=== PATIENT | female | born 1990 | race Hispanic/Latino ===

== ENCOUNTER 2021-09-22 01:45 | Emergency (ER) | payer SELFPAY ==
[2021-09-22 02:38] LABS: Absolute Lymphocytes (CBC) 1.6 K/uL (0.7-4.9); Basophils % 0.3 % (0-1.3); Hematocrit 38.4 % (36.0-45.0); Lymphocytes % 17.3 % (15.3-44.8); MPV 9.3 fL (7.6-11.3); RBC Red Blood Cell Count 4.42 M/uL (3.86-4.86)
[2021-09-22 02:57] LABS: Urine Blood Trace-intact (Negative); Urine Glucose Negative (Negative); Urine Protein Negative (Negative); Urine Specific Gravity 1.025 (1.005-1.030)
[2021-09-22 03:38] LABS: BUN Blood Urea Nitrogen 8 mg/dL (7-18); Bicarbonate 24 mmol/L (21-32); Glucose Level 91 mg/dL (74-106); HCG, Quantitative 20364 mIU/mL (1-3); Potassium 3.8 mmol/L (3.5-5.1); Sodium Level 139 mmol/L (136-145)
--- NOTE | 2021-09-22 04:47 | ER ---
Nurse's Notes [facility] Name: Jennifer Contreras Age: 31 yrs Sex: Female : 1990 Arrival Date: 09/22/2021 Time: 01:50 Bed 13 Private MD: Diagnosis: Threatened Presentation: 09/22 02:08 Chief complaint: Patient states: Woken from sleep feeling wet at 0045, reports vaginal lp1 bleeding; patient is about 12 weeks , reports some abdominal cramping. Coronavirus screen: At this time, the client does not indicate any symptoms associated with coronavirus-19. Ebola Screen: No symptoms or risks identified at this time. Initial Sepsis Screen: Does the patient meet any 2 criteria? No. Patient's initial sepsis screen is negative. Does the patient have a suspected source of infection? No. Patient's initial sepsis screen is negative. Risk Assessment: Do you want to hurt yourself or someone else? Patient reports no desire to harm self or others. Onset of symptoms was September 22, 2021 at 00:45. 02:08 Method Of Arrival: Ambulatory lp1 02:08 Acuity: ARNIE 3 lp1 Triage Assessment: 02:10 : Reports vaginal bleeding that is bright red, with clots, Patient brought specimen lp1 in bag. 02:15 General: Behavior is calm, cooperative. Pain: Denies pain. mr2 06:45 General: Appears. mr2 HISTORICAL GUIDE: 02:09 LMP 06/27/2021, Verified, EDC 04/03/2022, Gestational age from LMP: 12 weeks 3 lp1 days Historical: - Allergies: 02:09 No Known Allergies; lp1 - Home Meds: 02:09 None [Active]; lp1 - PMHx: 02:09 None; lp1 - PSHx: 02:09 None; lp1 - Immunization history:: Adult Immunizations up to date. - Social history:: Smoking status: Patient denies any tobacco usage or history of. Screenin:09 Abuse screen: Denies threats or abuse. Denies injuries from another. Nutritional lp1 screening: No deficits noted. Tuberculosis screening: No symptoms or risk factors identified. Fall Risk None identified. Assessment: 02:30 : No deficits noted. mr2 Vital Signs: 02:08 BP 149 / 89; Pulse 80; Resp 18; Pulse Ox 99% on R/A; Weight 78.02 kg (R); lp1 ED Course: 01:50 Patient arrived in ED. 01:56 Nelson Magdaleno, DEANGELO is Primary Nurse. mr2 02:00 Miguel Mittal NP is PHCP. pm1 02:00 Juan Dean MD is Attending Physician. pm1 02:09 Triage completed. lp1 02:09 Arm band placed on. lp1 02:10 Patient has correct armband on for positive identification. lp1 02:30 No provider procedures requiring assistance completed. Inserted saline lock: 20 gauge mr2 in right antecubital area, using aseptic technique. 02:51 Abo/rh Typing Sent. mr2 02:51 Basic Metabolic Panel Sent. mr2 02:51 Quantitative Hcg Sent. mr2 04:27 OB Limited In Process Unspecified. EDMS 04:46 Foster Woods MD is Referral Physician. 7 05:15 IV discontinued. mr2 Administered Medications: No medications were administered Outcome: 04:46 Discharge ordered by . 7 05:20 Discharged to home ambulatory. mr2 05:20 Condition: stable 05:20 Discharge instructions given to patient, Instructed on follow up and referral plans. 05:27 Patient left the ED. lp1 Signatures: Dispatcher [employer] EDNH Yeny Brand, RN RN lp1 Miguel Mittal, MICHAELLE OLIVE PACKER pm1 Juan Dean MD MD [facility] Tracie Wheatley Nelson Magdaleno RN RN mr2
--- NOTE | 2021-09-22 04:47 | EDPHYS ---
Physician Documentation [facility] Name: Jennifer Contreras Age: 31 yrs Sex: Female : 1990 Arrival Date: 09/22/2021 Time: 01:50 Bed 13 Private MD: ED Physician Juan Dean HPI: 09/22 02:40 This 31 yrs old Female presents to ER via Ambulatory with complaints of pm1 Vaginal Bleeding - 12 WKS PREG. 02:40 The patient presents with vaginal bleeding that is with clots. Onset: The pm1 symptoms/episode began/occurred today, at 00:45. Modifying factors: The symptoms are alleviated by nothing, the symptoms are aggravated by nothing. Associated signs and symptoms: Pertinent positives: cramping, Pertinent negatives: dysuria, fever. Severity of symptoms: in the emergency department the symptoms are unchanged. The patient is sexually active. The patient has not experienced similar symptoms in the past. 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 - Social history:: Smoking status: Patient denies any tobacco usage or history of. ROS: 02:40 Positive for vaginal bleeding, Negative for urinary symptoms. pm1 02:40 Constitutional: Negative for fever, chills, and weight loss, Cardiovascular: Negative for chest pain, palpitations, and edema, Respiratory: Negative for shortness of breath, cough, wheezing, and pleuritic chest pain, Abdomen/GI: Negative for abdominal pain, nausea, vomiting, diarrhea, and constipation, Back: Negative for injury and pain, MS/Extremity: Negative for injury and deformity, Skin: Negative for injury, rash, and discoloration. 02:40 All other systems are negative. Exam: 02:40 Constitutional: This is a well developed, well nourished patient who is awake, alert, pm1 and in no acute distress. Head/Face: Normocephalic, atraumatic. 02:40 Back: No spinal tenderness. No costovertebral tenderness. Full range of motion. Skin: Warm, dry with normal turgor. Normal color with no rashes, no lesions, and no evidence of cellulitis. MS/ Extremity: Pulses equal, no cyanosis. Neurovascular intact. Full, normal range of motion. 02:40 Eyes: Exam is negative for acute changes, Extraocular movements: no acute changes, Conjunctiva: no acute changes, no injection. 02:40 ENT: Exam is negative for acute changes, Mouth: no acute changes, Lips: normal, moist, Oral mucosa: normal, pink and intact, moist. 02:40 Cardiovascular: Exam negative for acute changes, Rate: normal, Rhythm: regular, Pulses: no pulse deficits are appreciated. 02:40 Respiratory: Exam negative for acute changes, respiratory distress, shortness of breath, Breath sounds: are clear throughout. 02:40 Abdomen/GI: Inspection: obese Palpation: abdomen is soft and non-tender, in all quadrants. 02:40 Neuro: Exam negative for acute changes, Orientation: is normal, Mentation: is normal, Motor: is normal, moves all fours. Vital Signs: 02:08 BP 149 / 89; Pulse 80; Resp 18; Pulse Ox 99% on R/A; Weight 78.02 kg (R); lp1 MDM: 02:00 Patient medically screened. pm1 02:43 Data reviewed: vital signs. Data interpreted: Pulse oximetry: on room air is 99 %. pm1 Interpretation: normal. 04:45 Counseling: I had a detailed discussion with the patient and/or guardian regarding: the [facility] historical points, exam findings, and any diagnostic results supporting the discharge/admit diagnosis, the presence of at least one elevated blood pressure reading (>120/80) during this emergency department visit, lab results, radiology results, the need for outpatient follow up, an OB/Gyne specialist, to return to the emergency department if symptoms worsen or persist or if there are any questions or concerns that arise at home. Response to treatment: the patient's symptoms have markedly improved after treatment. 09/22 02:02 Order name: Abo/rh Typing pm1 09/22 02:02 Order name: Basic Metabolic Panel pm1 09/22 02:02 Order name: CBC with Diff; Complete Time: 02:43 pm1 09/22 02:02 Order name: Quantitative Hcg pm1 09/22 02:03 Order name: ABO/RH typing; Complete Time: 03:04 EDMS 09/22 02:03 Order name: Basic Metabolic Panel; Complete Time: 03:39 EDMS 09/22 02:02 Order name: IV Saline Lock; Complete Time: 02:51 pm1 09/22 02:02 Order name: Labs collected and sent; Complete Time: 02:51 pm1 09/22 02:02 Order name: NPO; Complete Time: 02:52 pm1 09/22 02:02 Order name: Urine Dipstick-Ancillary (obtain specimen); Complete Time: 02:52 pm1 09/22 02:03 Order name: HCG, Quantitative; Complete Time: 03:39 EDMS 09/22 02:57 Order name: Urine Dipstick-Ancillary; Complete Time: 03:04 EDMS 09/22 04:26 Order name: OB Limited; Complete Time: 15:36 EDMS 09/22 02:02 Order name: Urine Test (obtain specimen); Complete Time: 02:52 pm1 Administered Medications: No medications were administered Disposition: 19:10 Co-signature as Attending Physician, Juan Dean MD. [facility] Disposition Summary: 09/22/21 04:46 Discharge Ordered Location: Home [facility] Problem: new 7 Symptoms: have improved mh7 Condition: Stable mh7 Diagnosis - Threatened 7 Followup: mh7 - With: Private Physician - When: 1 - 2 days - Reason: Worsening of condition, Recheck today's complaints, Continuance of care, Re-evaluation by your physician Followup: 7 - With: Foster Woods MD - When: 1 - 2 days - Reason: Worsening of condition, Recheck today's complaints Discharge Instructions: - Discharge Summary Sheet mh7 - Threatened Miscarriage, [id number] [facility] Forms: - Medication Reconciliation Form 7 - Thank You Letter 7 - Antibiotic Education 7 - Prescription Opioid Use [facility] Signatures: Dispatcher [employer] EDMS Yeny Brand, RN RN lp1 Miguel Mittal, PASTER OPERATOR PASTER OPERATOR pm1 Juan Dean MD MD [facility] Corrections: (The following items were deleted from the chart) 04:26 02:07 Transvaginal Ob+US.RAD.BRZ ordered. EDMS EDMS
[2021-09-22 05:50] VITALS: BP 149/89; O2SAT 99
--- NOTE | 2021-09-22 08:22 | RAD REPORT ---
EXAM DESCRIPTION: US - OB Limited - 09/22/2021 4:27 am CLINICAL HISTORY: VAGINAL BLEEDING, Preliminary findings provided at the time of the study. COMPARISON: No comparisons FINDINGS: Limited assessment shows a single intrauterine gestation. Amniotic fluid volume is normal. Posterior placenta shows no abruption or marginal hematoma. Internal os appears closed. No placenta previa identifiable. Single gestation measures 13 weeks 2 days with a calculated CINDY of 03/28/2022. Heart rate measurement s average 149 BPM. Limited maternal adnexa assessment is unremarkable. IMPRESSION: Single 13 week 2 day IUP with normal heart rate and no gross anatomic deformity seen on very limited assessment. Internal os appears closed. No placental abnormality seen.
== END 2021-09-22 05:27 | disposition home or self-care (01) ==
LOC: ER 01:45
DX: O20.0 Threatened abortion (principal)
CPT/HCPCS: 36415; 76815; 80048; 81003; 84702; 85025; 86900; 86901; 99283

== ENCOUNTER 2022-04-21 07:06 | Emergency (ER) | payer OTHER ==
[2022-04-21] MEDS ORDERED: ONDANSETRON 4 MG/2 ML VIAL ONE (07:39)
[2022-04-21] MEDS ORDERED: NA CHLORIDE 0.9% 1,000 ML ONE (07:40)
[2022-04-21 07:45] LABS: Urine Blood Negative (Negative); Urine Glucose Negative (Negative); Urine Protein Negative (Negative); Urine Specific Gravity 1.025 (1.005-1.030); Urine pH 7.5 (5.0-7.0)
[2022-04-21 07:53] LABS: Absolute Lymphocytes (CBC) 0.6 K/uL (0.7-4.9); Lymphocytes % 4.5 % (15.3-44.8); MCV 88.5 fL (80-100); MPV 9.2 fL (7.6-11.3)
[2022-04-21 07:54] LABS: Urine Specific Gravity/Preg 1.025 (1.005-1.030)
[2022-04-21 08:10] LABS: Albumin 3.5 g/dL (3.4-5.0); Bilirubin Total 0.6 mg/dL (0.2-1.0); Potassium 3.6 mmol/L (3.5-5.1); Protein, Total 7.4 g/dL (6.4-8.2)
--- NOTE | 2022-04-21 09:03 | RAD REPORT ---
EXAM DESCRIPTION: CT - Abdomen Pelvis W Contrast - 04/21/2022 8:35 am CLINICAL HISTORY: Abdominal pain COMPARISON: none. TECHNIQUE: Computed axial tomography of the abdomen pelvis was obtained. 100 cc Isovue-300 was admin istered intravenously. Oral contrast was not requested which limits evaluation of bowel and appendix All CT scans are performed using dose optimization technique as appropriate and may include automated exposure control or mA/KV adjustment according to patient size. FINDINGS: The liver, spleen, pancreas, adrenal and kidneys appear unremarkable. There is no evidence of diverticulitis. No adnexal mass. Uterine fibroid. Small umbilical hernia Moderate amount stool within the colon IMPRESSION: Moderate amount stool within the colon
[2022-04-21 09:12] LABS: Urine Bacteria NONE SEEN /HPF (<20); Urine RBC NONE SEEN /HPF (NONE SEEN)
--- NOTE | 2022-04-21 09:27 | EDPHYS ---
Physician Documentation [facility] Name: Jennifer oCntreras Age: 32 yrs Sex: Female : 1990 Arrival Date: 04/21/2022 Time: 07:09 Bed 17 Private MD: ED Physician Walter Ramon HPI: 04/21 07:42 This 32 yrs old Female presents to ER via Ambulatory with complaints of Fever. kdr 07:42 The patient reports fever, not measured (subjective). Onset: The symptoms/episode kdr began/occurred yesterday. Modifying factors: there are no obvious modifying factors. Associated signs and symptoms: Pertinent positives: abdominal pain, chills. Severity of symptoms: At their worst the symptoms were mild this morning, in the emergency department the symptoms are unchanged. The patient has not experienced similar symptoms in the past. The patient has been recently seen by a physician: Patient is about 3 weeks . She states that she is no longer breast-feeding.. 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 - Social history:: Smoking status: Patient denies any tobacco usage or history of. ROS: 07:42 Constitutional: Negative for fever, chills, and weight loss, Eyes: Negative for injury, kdr pain, redness, and discharge, ENT: Negative for injury, pain, and discharge, Neck: Negative for injury, pain, and swelling, Cardiovascular: Negative for chest pain, palpitations, and edema, Respiratory: Negative for shortness of breath, cough, wheezing, and pleuritic chest pain, Back: Negative for injury and pain, : Negative for injury, bleeding, discharge, and swelling, MS/Extremity: Negative for injury and deformity, Skin: Negative for injury, rash, and discoloration, Neuro: Negative for headache, weakness, numbness, tingling, and seizure activity. Psych: Negative for depression, anxiety, suicide ideation, homicidal ideation, and hallucinations, Allergy/Immunology: Negative for hives, rash, and allergies, Endocrine: Negative for neck swelling, polydipsia, polyuria, polyphagia, and marked weight changes, Hematologic/Lymphatic: Negative for swollen nodes, abnormal bleeding, and unusual bruising. 07:42 Abdomen/GI: Positive for abdominal pain, nausea, of the suprapubic area, Negative for constipation, abdominal cramps, abdominal distension, anorexia, dysphagia, hematemesis, black/tarry stool, rectal pain, rectal bleeding. Exam: 07:42 Constitutional: This is a well developed, well nourished patient who is awake, alert, kdr and in no acute distress. Head/Face: Normocephalic, atraumatic. Eyes: Pupils equal round and reactive to light, extra-ocular motions intact. Lids and lashes normal. Conjunctiva and sclera are non-icteric and not injected. Cornea within normal limits. Periorbital areas with no swelling, redness, or edema. Neck: Trachea midline, no thyromegaly or masses palpated, and no cervical lymphadenopathy. Supple, full range of motion without nuchal rigidity, or vertebral point tenderness. No Meningismus. Chest/axilla: Normal chest wall appearance and motion. Nontender with no deformity. No lesions are appreciated. Cardiovascular: Regular rate and rhythm with a normal S1 and S2. No gallops, murmurs, or rubs. Normal PMI, no JVD. No pulse deficits. Respiratory: Lungs have equal breath sounds bilaterally, clear to auscultation and percussion. No rales, rhonchi or wheezes noted. No increased work of breathing, no retractions or nasal flaring. Back: No spinal tenderness. No costovertebral tenderness. Full range of motion. Skin: Warm, dry with normal turgor. Normal color with no rashes, no lesions, and no evidence of cellulitis. MS/ Extremity: Pulses equal, no cyanosis. Neurovascular intact. Full, normal range of motion. Neuro: Awake and alert, GCS 15, oriented to person, place, time, and situation. Cranial nerves II-XII grossly intact. Motor strength 5/5 in all extremities. Sensory grossly intact. Cerebellar exam normal. Normal gait. Psych: Awake, alert, with orientation to person, place and time. Behavior, mood, and affect are within normal limits. 07:42 Abdomen/GI: Inspection: obese Bowel sounds: active, diminished, in all quadrants, Palpation: soft, mild abdominal tenderness, in the suprapubic area. Vital Signs: 07:13 BP 124 / 76; Pulse 101; Resp 19; Temp 99.3(O); Pulse Ox 97% on R/A; Weight 85.28 kg; lp1 Height 5 ft. 3 in. (160.02 cm); 08:22 BP 110 / 70; Pulse 91; Resp 16; Pulse Ox 98% ; bp 09:44 BP 115 / 73; Pulse 85; Resp 16; Pulse Ox 99% ; bp 07:13 Body Mass Index 33.30 (85.28 kg, 160.02 cm) lp1 MDM: 07:42 Data reviewed: vital signs, nurses notes, lab test result(s), radiologic studies. kdr Counseling: I had a detailed discussion with the patient and/or guardian regarding: the historical points, exam findings, and any diagnostic results supporting the discharge/admit diagnosis, lab results, radiology results. 09:26 Patient medically screened. kdr 04/21 07:25 Order name: CBC with Diff; Complete Time: 08:52 kdr 04/21 07:25 Order name: CMP; Complete Time: 08:52 kdr 04/21 07:45 Order name: Urine Dipstick-Ancillary; Complete Time: 08:52 EDMS 04/21 07:46 Order name: Urine --Ancillary (enter results); Complete Time: 08:52 em1 04/21 07:46 Order name: Urine Microscopic Only; Complete Time: 09:22 em1 04/21 07:46 Order name: Urine Culture em1 04/21 07:25 Order name: CT Abd/Pelvis - IV Contrast Only; Complete Time: 09:22 kdr 04/21 07:25 Order name: IV Saline Lock; Complete Time: 07:43 kdr 04/21 07:25 Order name: Labs collected and sent; Complete Time: 07:43 kdr 04/21 07:25 Order name: Urine Dipstick-Ancillary (obtain specimen); Complete Time: 07:43 kdr 04/21 07:25 Order name: Urine Test (obtain specimen); Complete Time: 07:42 kdr Administered Medications: 07:40 Drug: NS 0.9% 1000 ml Route: IV; Rate: 1 bolus; Site: right antecubital; bp 09:46 Follow up: IV Status: Completed infusion; IV Intake: 1000ml bp 07:40 Drug: Zofran (Ondansetron) 4 mg Route: IVP; Site: right antecubital; bp 09:45 Follow up: Response: No adverse reaction bp Disposition Summary: 04/21/22 09:26 Discharge Ordered Location: Home kdr Problem: new kdr Symptoms: have improved kdr Condition: Stable kdr Diagnosis - Lower abdominal pain, unspecified kdr - UTI/ Urinary tract infection, site not specified kdr Followup: kdr - With: Private Physician - When: 2 - 3 days - Reason: If symptoms return, Further diagnostic work-up, Recheck today's complaints, Continuance of care, Re-evaluation by your physician Discharge Instructions: - Discharge Summary Sheet kdr - Urinary Tract Infection, Adult, [id number] kdr - Abdominal Pain, Adult, [id number] kdr Forms: - Medication Reconciliation Form kdr - Thank You Letter kdr - Antibiotic Education kdr - Work release form eb Prescriptions: - Bactrim DS 800-160 mg Oral Tablet - take 1 tablet by ORAL route every 12 hours for 10 days; 20 tablet; Refills: 0, kdr Product Selection Permitted - Ibuprofen 600 mg Oral Tablet - take 1 tablet by ORAL route every 6 hours As needed take with food; 15 tablet; kdr Refills: 0, Product Selection Permitted Signatures: Dispatcher [employer] Walter Gardner MD MD kdr Yeny Brand, RN RN lp1 Dusty Harrison RN RN bp
--- NOTE | 2022-04-21 09:27 | ER ---
Nurse's Notes [facility] Name: Jennifer Contreras Age: 32 yrs Sex: Female : 1990 Arrival Date: 04/21/2022 Time: 07:09 Bed 17 Private MD: Diagnosis: Lower abdominal pain, unspecified;UTI/ Urinary tract infection, site not specified Presentation: 04/21 07:13 Chief complaint: Patient states: pt reported having fever 2 nights, abdominal pain and lp1 vomiting. Coronavirus screen: Vaccine status: Patient reports being unvaccinated. Ebola Screen: Patient denies travel to an Ebola-affected area in the 21 days before illness onset. Initial Sepsis Screen: Does the patient meet any 2 criteria? HR > 90 bpm. Does the patient have a suspected source of infection? No. Patient's initial sepsis screen is negative. Risk Assessment: Do you want to hurt yourself or someone else? Patient reports no desire to harm self or others. Onset of symptoms was April 20, 2022. 07:13 Method Of Arrival: Ambulatory lp1 07:13 Acuity: ARNIE 3 lp1 Triage Assessment: 07:15 General: Appears in no apparent distress. Behavior is calm, cooperative. Pain: lp1 Complains of pain in abdomen. 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 - Social history:: Smoking status: Patient denies any tobacco usage or history of. Screenin:20 Abuse screen: Denies threats or abuse. Denies injuries from another. Nutritional bp screening: No deficits noted. Tuberculosis screening: No symptoms or risk factors identified. Fall Risk None identified. Assessment: 07:20 General: SEE TRIAGE NOTE. bp 08:22 Reassessment: No changes from previously documented assessment. Patient and/or family bp updated on plan of care and expected duration. Pain level reassessed. 09:44 Reassessment: PT D/C HOME AMBULATORY, DX WITH UTI. bp Vital Signs: 07:13 BP 124 / 76; Pulse 101; Resp 19; Temp 99.3(O); Pulse Ox 97% on R/A; Weight 85.28 kg; lp1 Height 5 ft. 3 in. (160.02 cm); 08:22 BP 110 / 70; Pulse 91; Resp 16; Pulse Ox 98% ; bp 09:44 BP 115 / 73; Pulse 85; Resp 16; Pulse Ox 99% ; bp 07:13 Body Mass Index 33.30 (85.28 kg, 160.02 cm) lp1 ED Course: 07:09 Patient arrived in ED. as 07:15 Triage completed. lp1 07:15 Arm band placed on. lp1 07:16 Walter Ramon MD is Attending Physician. kdr 07:20 Patient has correct armband on for positive identification. Bed in low position. Call bp light in reach. Side rails up X2. 07:22 Dusty Harrison, RN is Primary Nurse. bp 07:40 Inserted saline lock: 20 gauge in right antecubital area, using aseptic technique. bp Blood collected. 08:37 CT Abd/Pelvis - IV Contrast Only In Process Unspecified. EDMS 09:44 No provider procedures requiring assistance completed. IV discontinued, intact, bp bleeding controlled, No redness/swelling at site. Pressure dressing applied. Administered Medications: 07:40 Drug: NS 0.9% 1000 ml Route: IV; Rate: 1 bolus; Site: right antecubital; bp 09:46 Follow up: IV Status: Completed infusion; IV Intake: 1000ml bp 07:40 Drug: Zofran (Ondansetron) 4 mg Route: IVP; Site: right antecubital; bp 09:45 Follow up: Response: No adverse reaction bp Medication: 07:20 VIS not applicable for this client. bp Intake: 09:46 IV: 1000ml; Total: 1000ml. bp Outcome: 09:26 Discharge ordered by . kdr 09:44 Discharged to home ambulatory. bp 09:44 Condition: stable 09:44 Discharge instructions given to patient, Instructed on discharge instructions, follow up and referral plans. medication usage, Demonstrated understanding of instructions, follow-up care, medications, Prescriptions given X 2. 09:46 Patient left the ED. bp Signatures: Dispatcher [employer] EDMS Walter Ramon MD MD kdr Martinez, Amelia as Pena, Laura, RN RN lp1 Hunter, Dusty, RN RN bp
[2022-04-21 10:27] VITALS: TEMP 99.3
[2022-04-21 10:30] VITALS: BP 115/73; O2SAT 99
== END 2022-04-21 09:46 | disposition home or self-care (01) ==
LOC: ER 07:06
DX: R10.30 Lower abdominal pain, unspecified (principal); N39.0 Urinary tract infection, site not specified; R50.9 Fever, unspecified
CPT/HCPCS: 87088; 85025; 87086; 36415; 81025; 80053; 74177; Q9967; J7030; J2405; 81003; 81015; 96361; 96374; 99284